=== PATIENT | female | born 1995 | race Two or more races ===

== ENCOUNTER → 2024-11-20 | Outpatient (REF) | payer OTHER | LOC: M SFHCWAGY 17:00 | PROVIDERS: ATTEND Specialist | DX: Z34.93 Encounter for supervision of normal pregnancy, unspecified, third trimester (principal); Z36.85 Encounter for antenatal screening for Streptococcus B ==

== ENCOUNTER 2024-12-22 10:41 | Inpatient (IN) | payer OTHER ==
[~2024-12-22] VITALS: Ht 165.1 cm; Wt 90.4 kg
[2024-12-22] VITALS (15 sets, daily range): BP systolic 105–153; BP diastolic 54–93; O2SAT 97
[2024-12-22] MEDS ORDERED: IRON1TAB2 PO (11:02)
[2024-12-22] MEDS ORDERED: PRENTAB9 PO (11:02)
[2024-12-22] MEDS ORDERED: HOME MED LIST COMPLETE! XX SCH (11:05)
[2024-12-22] MEDS ORDERED: CARBOPROST TROMETHAMINE 250 MCG/ML AMP IM PRN (11:40)
[2024-12-22] MEDS ORDERED: OXYTOCIN DRIP 30 UNITS in IV 1 EA IV PRN (11:40)
[2024-12-22] MEDS ORDERED: TRANEXAMIC ACID INJection 1,000 MG in NS 100 ML IV PRN (11:40)
[2024-12-22] MEDS ORDERED: METHYLERGONOVINE MALEATE 0.2MG/ML 1ML VIAL IM PRN (11:40)
[2024-12-22 12:06] LABS: HEMATOCRIT 33.5 % (36.0-47.0); HEMOGLOBIN 11.2 g/dl (12.0-15.5); MEAN CORPUSCULAR HEMOGLOBIN 27.1 pg (27.0-33.0); MEAN CORPUSCULAR HGB CONC 33.4 g/dl (32.0-36.5); MEAN CORPUSCULAR VOLUME 80.9 fl (80.0-96.0); PLATELET COUNT, AUTOMATED 129 10^3/uL (150-450); RED BLOOD COUNT 4.14 10^6/uL (4.00-5.40); WHITE BLOOD COUNT 5.9 10^3/uL (4.0-10.0)
[2024-12-22 13:06] LABS: HIV 1&2 SCREEN NEGATIVE (NEGATIVE)
[2024-12-22 13:14] LABS: HEPATITIS C VIRUS ABY INDEX 0.14 INDEX (<0.8)
[2024-12-22] MEDS: LACTATED RINGER'S 1000 ML IV STA (15:28)
[2024-12-22] MEDS ORDERED: LR 1,000 ML IV SCH (17:00)
[2024-12-22] MEDS: OXYTOCIN DRIP 30 UNITS in IV 1 EA IV SCH (17:48)
[2024-12-22] MEDS: LR 1,000 ML IV SCH (17:49)
[2024-12-22] MEDS ORDERED: ePHEDrine SULFATE 25 MG/5 ML(5MG/ML) SYRINGE IVP PRN (20:15)
[2024-12-22] MEDS ORDERED: NALOXONE INJ 0.4MG/1ML VIAL IV PRN (20:15)
[2024-12-22] MEDS ORDERED: diphenhydrAMINE 50MG/ML VIAL IV PRN (20:15)
[2024-12-22] MEDS ORDERED: EPIDURAL/PCA KEYS XX PRN (20:15)
[2024-12-22] MEDS ORDERED: LR 500 ML IV PRN (20:15)
[2024-12-22] MEDS ORDERED: ONDANSETRON 4MG 2ML VIAL IV PRN (20:15)
[2024-12-22] MEDS ORDERED: FENTANYL/ROPIVACAINE/NACL BAG 100 ML EPIDURAL SCH (20:15)
[2024-12-22] MEDS: LIDOCAINE 1% MDV 20ML VIAL INFIL PRN (20:57)
[2024-12-22] MEDS ORDERED: MOM 30ML SUSPENSION UDC PO PRN (21:25)
[2024-12-22] MEDS ORDERED: ANUSOL HC CREAM 30GM TOP PRN (21:25)
[2024-12-22] MEDS ORDERED: ACETAMINOPHEN 325 MG TAB PO PRN (21:25)
[2024-12-22] MEDS ORDERED: DOCUSATE SODIUM 100MG CAPSULE PO PRN (21:25)
[2024-12-22] MEDS ORDERED: METHYLERGONOVINE MALEATE 0.2 MG TAB PO PRN (21:25)
[2024-12-22] MEDS ORDERED: RHOGAM 300MCG (1500IU) INJ IM SCH (21:25)
[2024-12-22] MEDS ORDERED: IBUPROFEN 600MG TAB PO PRN (21:25)
[2024-12-22] MEDS: IBUPROFEN 800 MG TAB PO PRN (21:35)
[2024-12-23] MEDS: ACETAMINOPHEN 500 MG TAB PO PRN (00:04)
[2024-12-23] MEDS: DIBUCAINE 1% OINTMENT 30GM TOP PRN (00:05)
[2024-12-23 06:00] VITALS: BP 125/58; O2SAT 97
[2024-12-23] MEDS: PRENATAL VITAMINS CHEWABLE TABLET PO SCH (09:12)
[2024-12-23 18:00] VITALS: BP 143/83; O2SAT 99
[2024-12-24 05:57] VITALS: BP 117/78; O2SAT 100
[2024-12-24] MEDS: MEASLES,MUMPS,RUBELLA VACCINE INJ (MMR-II) SC.IMMUN ONE (09:00)
== END 2024-12-24 14:15 | disposition home or self-care (01) | DRG 807 ==
LOC: M LDO 10:41 → M LDI 11:25 → M OBS 22:59
PROVIDERS: ADMIT Advanced Practice Midwife; ATTEND Advanced Practice Midwife
PROC: 10E0XZZ Delivery of Products of Conception, External Approach (ICD-10-PCS; principal; 2024-12-22)
PROC: 0KQM0ZZ Repair Perineum Muscle, Open Approach (ICD-10-PCS; 2024-12-22)
DX: O48.0 Post-term pregnancy (principal); Z37.0 Single live birth; Z3A.40 40 weeks gestation of pregnancy; O70.1 Second degree perineal laceration during delivery